=== PATIENT | male | born 1960 | race Caucasian/White ===

== ENCOUNTER 2022-11-20 08:50 | Emergency (ER) | payer MEDICARE ==
[2022-11-20 09:11] VITALS: BP 142/50; PULSE 68; RESP 17; TEMP 99; BMI 18.7
[2022-11-20] MEDS ORDERED: ACETAMINOPHEN 1000 MG/100 ML BAG IVPB ONE (10:21)
[2022-11-20 11:15] LABS: HEMATOCRIT 33.4 % (35.4-49); MCH 28.8 pg (25.7-33.7); MCHC 32.8 g/dl (32.0-35.9); MEAN CELL VOLUME 87.8 fl (80-96); MEAN PLT VOLUME 8.9 fl (7.5-11.1); PLATELET COUNT 101 10^3/uL (134-434); RBC 3.81 M/mm3 (4.00-5.60); RDW 13.5 % (11.9-15.9); WHITE BLOOD COUNT 3.3 K/mm3 (4.0-10.0)
[2022-11-20 11:19] LABS: EPI CELLS 4 /uL (0-25.1); HYALINE CASTS 1 /uL (0-3.1); URINE APPEARANCE CLEAR; URINE BACTERIA 1 /uL (0-1359); URINE BILIRUBIN NEGATIVE (NEGATIVE); URINE COLOR YELLOW; URINE GLUCOSE (UA) NEGATIVE (NEGATIVE); URINE KETONE 1+ (NEGATIVE); URINE LEUK ESTERASE NEGATIVE (NEGATIVE); URINE NITRITE NEGATIVE (NEGATIVE); URINE PROTEIN 1+ (NEGATIVE); URINE RBC 61 /uL (0-23.9); URINE UROBILINOGEN 0.2 mg/dL (0.2-1.0); URINE WBC 9 /uL (0-25.8)
[2022-11-20 11:36] LABS: ALBUMIN 3.9 g/dl (3.4-5.0); CALCIUM 8.5 mg/dL (8.5-10.1); MAGNESIUM 1.8 mg/dL (1.8-2.4)
[2022-11-20] MEDS ORDERED: ACETAMINOPHEN INJECTION 100 ML IVPB ONE (11:37)
[2022-11-20 11:39] LABS: PHOSPHOROUS 3.5 mg/dL (2.5-4.9)
[2022-11-20 11:41] LABS: BILIRUBIN,TOTAL 0.6 mg/dL (0.2-1); TOT PROT 6.8 g/dl (6.4-8.2)
[2022-11-20 11:44] LABS: BLOOD UREA NITROGEN 16.8 mg/dL (7-18)
[2022-11-20 11:49] LABS: ANISOCYTOSIS 0; HELMET CELLS 0; HOWELL-JOLLY BODIES 0; MACROCYTOSIS 0; OVALOCYTE 0; ROULEAU 0; SICKELED CELLS 0; TARGET CELLS 0; TEAR DROP CELLS 0; TOXIC GRANULATION 0
== END 2022-11-20 15:40 | disposition home or self-care (01) ==
LOC: JER 08:50
PROC: 3E033GC Introduction of Other Therapeutic Substance into Peripheral Vein, Percutaneous Approach (ICD-10-PCS; principal; 2022-11-20)
DX: U07.1 COVID-19 (principal); N28.1 Cyst of kidney, acquired; D69.6 Thrombocytopenia, unspecified; D72.819 Decreased white blood cell count, unspecified
CPT/HCPCS: 0241U-QW; 36415; 74177-TC; 80053; 81003; 83735; 84100; 85025; 87086; 93005; 93010; 96374; 99285-25

== ENCOUNTER 2022-12-03 14:45 | Emergency (ER) | payer MEDICARE ==
[2022-12-03 14:57] VITALS: BP 147/83; PULSE 97; RESP 18; TEMP 98.4; BMI 16.2
== END 2022-12-03 15:54 | disposition home or self-care (01) ==
LOC: JERFT 14:45 → JER 14:45 → JERFT 15:54
DX: H92.02 Otalgia, left ear (principal)
CPT/HCPCS: 99283-25

== ENCOUNTER 2023-03-14 21:17 | Emergency (ER) | payer MEDICARE, OTHER ==
[2023-03-14 21:35] VITALS: BP 175/78; PULSE 66; RESP 20; TEMP 98.2; BMI 16.2
== END 2023-03-15 01:25 | disposition left against medical advice (07) ==
LOC: JERFT 21:17 → JER 21:17
DX: G47.00 Insomnia, unspecified (principal); Z76.0 Encounter for issue of repeat prescription
CPT/HCPCS: 99281-25

== ENCOUNTER 2023-03-15 08:40 | Emergency (ER) | payer MEDICARE, OTHER ==
[2023-03-15 08:57] VITALS: RESP 16; BMI 16.9
[2023-03-15 10:36] VITALS: BP 167/76; PULSE 60; TEMP 97.5
== END 2023-03-15 10:49 | disposition home or self-care (01) ==
LOC: JER 08:40
DX: J09.X2 Influenza due to identified novel influenza A virus with other respiratory manifestations (principal); R51.9 Headache, unspecified; Z20.822 Contact with and (suspected) exposure to COVID-19
CPT/HCPCS: 0241U-QW; 99283-25

== ENCOUNTER 2023-05-14 08:10 | Emergency (ER) | payer MEDICARE, OTHER ==
[2023-05-14 08:21] VITALS: TEMP 98; BMI 16.9
[2023-05-14] MEDS ORDERED: LIDOCAINE 5% TOPICAL PATCH TP ONE (08:37)
[2023-05-14] MEDS ORDERED: LIDOCAINE 5% TOPICAL PATCH ONE (08:40)
[2023-05-14 09:26] VITALS: BP 104/56; PULSE 59; RESP 14
[2023-05-14] MEDS ORDERED: LIDOCAINE PATCH REMOVAL MC ONE (22:00)
== END 2023-05-14 09:57 | disposition home or self-care (01) ==
LOC: JER 08:10
DX: M79.672 Pain in left foot (principal); R22.42 Localized swelling, mass and lump, left lower limb
CPT/HCPCS: 73630-TC-LT; 99283-25

== ENCOUNTER 2023-05-17 18:23 | Emergency (ER) | payer MEDICARE, OTHER ==
[2023-05-17 18:32] VITALS: PULSE 63; RESP 20; TEMP 98.2; BMI 18.7
[2023-05-17] MEDS ORDERED: OXYMETAZOLINE 0.05% NASAL SOLUTION 15 ML BOTTLE NS ONE (19:13)
[2023-05-17 19:25] VITALS: BP 156/65
[2023-05-17] MEDS ORDERED: hydrOXYzine PAMOATE 50 MG CAPSULE (FP) PO ONE (19:25)
[2023-05-17] MEDS ORDERED: predniSONE 20 MG TABLET (UD) PO ONE (19:26)
[2023-05-17] MEDS ORDERED: predniSONE 20 MG TABLET (UD) ONE (19:39)
[2023-05-17] MEDS ORDERED: hydrOXYzine PAMOATE 50 MG CAPSULE (FP) ONE (19:39)
== END 2023-05-17 20:23 | disposition home or self-care (01) ==
LOC: JERFT 18:23 → JER 18:23 → JERFT 20:23
DX: J31.0 Chronic rhinitis (principal); R09.81 Nasal congestion
CPT/HCPCS: 99283-25

== ENCOUNTER 2024-01-04 16:33 | Emergency (ER) | payer MEDICARE, OTHER ==
[2024-01-04 16:50] VITALS: BP 164/54; PULSE 61; RESP 18; TEMP 97.4; BMI 18.7
== END 2024-01-04 17:46 | disposition home or self-care (01) ==
LOC: JERFT 16:33
DX: H92.02 Otalgia, left ear (principal)
CPT/HCPCS: 99283-25

== ENCOUNTER 2024-05-12 16:48 | Emergency (ER) | payer MEDICARE, OTHER ==
[2024-05-12 16:56] VITALS: BP 165/57; PULSE 63; RESP 18; TEMP 97.8; BMI 16.6
== END 2024-05-12 17:17 | disposition home or self-care (01) ==
LOC: JERFT 16:48
DX: R09.81 Nasal congestion (principal); H92.02 Otalgia, left ear
CPT/HCPCS: 99283-25

== ENCOUNTER 2024-05-25 17:45 | Emergency (ER) | payer MEDICARE, OTHER ==
[2024-05-25 17:50] VITALS: BP 158/78; PULSE 67; RESP 18; TEMP 97; BMI 16.2
[2024-05-25] MEDS ORDERED: GLUCAGON 1 MG KIT ONE (21:43)
[2024-05-25] MEDS: GLUCAGON 1 MG KIT IVPUSH ONE (22:09)
[2024-05-25 22:21] LABS: BASO % 1.5 % (0-2.0); EOS % 4.9 % (0-4.5); HEMOGLOBIN 12.5 GM/dL (11.7-16.9); LYMPH % 19.1 % (8-40); MCH 29.5 pg (25.7-33.7); MCHC 33.7 g/dl (32.0-35.9); MEAN CELL VOLUME 87.4 fl (80-96); MEAN PLT VOLUME 8.6 fl (7.5-11.1); MONO % 9.7 % (3.8-10.2); NEUT % 64.8 % (42.8-82.8); PLATELET COUNT 186 10^3/uL (134-434); RBC 4.23 M/mm3 (4.00-5.60); RDW 13.5 % (11.9-15.9); WHITE BLOOD COUNT 5.6 K/mm3 (4.0-10.0)
[2024-05-25] MEDS ORDERED: IBUPROFEN 400 MG TABLET (FP) PO ONE (22:46)
[2024-05-25 22:48] LABS: POTASSIUM 4.4 mmol/L (3.5-5.1)
[2024-05-25 22:50] LABS: CALCIUM 9.2 mg/dL (8.5-10.1)
[2024-05-25 22:51] LABS: ALBUMIN 4.4 g/dl (3.4-5.0); BLOOD UREA NITROGEN 8.6 mg/dL (7-18)
[2024-05-25 22:54] LABS: CREATININE 0.9 mg/dL (0.55-1.3)
[2024-05-25 22:56] LABS: BILIRUBIN,TOTAL 0.6 mg/dL (0.2-1); TOT PROT 7.8 g/dl (6.4-8.2)
[2024-05-25] MEDS: IBUPROFEN 400 MG TABLET (FP) PO ONE (23:16)
== END 2024-05-26 00:09 | disposition home or self-care (01) ==
LOC: JER 17:45
PROC: 3E033GC Introduction of Other Therapeutic Substance into Peripheral Vein, Percutaneous Approach (ICD-10-PCS; principal; 2024-05-25)
DX: T18.108A Unspecified foreign body in esophagus causing other injury, initial encounter (principal); R13.10 Dysphagia, unspecified
CPT/HCPCS: 36415; 80053; 85025; 96374; 99284-25

== ENCOUNTER 2024-08-18 08:47 | Emergency (ER) | payer MEDICARE, OTHER ==
[2024-08-18 09:04] VITALS: BP 177/76; PULSE 74; RESP 18; TEMP 98.8; BMI 16.9
[2024-08-18] MEDS ORDERED: ACETAMINOPHEN 500 MG TABLET (FP) ONE (09:40)
[2024-08-18] MEDS: ACETAMINOPHEN 500 MG TABLET (FP) PO ONE (09:43)
[2024-08-18] MEDS ORDERED: IBUPROFEN 600 MG TABLET (FP) PO ONE (13:14)
[2024-08-18] MEDS: IBUPROFEN 600 MG TABLET (FP) PO ONE (13:15)
== END 2024-08-18 13:50 | disposition home or self-care (01) ==
LOC: JERFT 08:47
DX: S63.92XA Sprain of unspecified part of left wrist and hand, initial encounter (principal); S20.212A Contusion of left front wall of thorax, initial encounter; W18.30XA Fall on same level, unspecified, initial encounter
CPT/HCPCS: 71046-TC-FY; 71101-TC-LT-FY; 73110-TC-LT-FY; 73130-TC-LT-FY; 99284-25

== ENCOUNTER 2025-01-18 21:27 | Emergency (ER) | payer MEDICARE, OTHER ==
[2025-01-18 21:53] VITALS: BMI 23.5
[2025-01-18 23:40] LABS: HEMATOCRIT 34.6 % (35.4-49); HEMOGLOBIN 11.9 GM/dL (11.7-16.9); MCH 29.7 pg (25.7-33.7); MCHC 34.3 g/dl (32.0-35.9); MEAN CELL VOLUME 86.7 fl (80-96); MEAN PLT VOLUME 8.8 fl (7.5-11.1); PLATELET COUNT 154 10^3/uL (134-434); RBC 3.99 M/mm3 (4.00-5.60); RDW 13.6 % (11.9-15.9); WHITE BLOOD COUNT 6.8 K/mm3 (4.0-10.0)
[2025-01-18] MEDS ORDERED: LIDOCAINE HCL 2% JELLY 6 ML TP ONE (23:40)
[2025-01-18] MEDS: LIDOCAINE VISCOUS 2% ORAL/TOP 100 ML BOTTLE MM ONE (23:47)
[2025-01-19 00:27] LABS: CHLORIDE 93 mmol/L (98-107)
[2025-01-19 00:29] LABS: ALBUMIN 3.9 g/dl (3.4-5.0); BLOOD UREA NITROGEN 11.9 mg/dL (7-18); CALCIUM 8.9 mg/dL (8.5-10.1); CO2 27 mmol/L (21-32); GLUCOSE,RANDOM 112 mg/dL (74-106)
[2025-01-19 00:34] LABS: TOT PROT 8.5 g/dl (6.4-8.2)
[2025-01-19 00:35] LABS: ALK PHOS 87 U/L (45-117)
[2025-01-19] MEDS ORDERED: POLYETHYLENE GLYCOL (HEALTHYLAX) 3350 17 GM PACKET ONE (00:40)
[2025-01-19 01:01] VITALS: BP 145/59; PULSE 68; RESP 19; TEMP 97.4
[2025-01-19] MEDS: POLYETHYLENE GLYCOL (HEALTHYLAX) 3350 17 GM PACKET PO ONE (01:07)
[2025-01-19 02:06] LABS: ANION GAP -5 mmol/L (4-13); POTASSIUM > 10.0 mmol/L (3.5-5.1); SGOT/AST 142 U/L (15-37); SODIUM 115 mmol/L (136-145)
== END 2025-01-19 02:03 | disposition home or self-care (01) ==
LOC: JER 21:27
DX: K64.4 Residual hemorrhoidal skin tags (principal); K62.5 Hemorrhage of anus and rectum
CPT/HCPCS: 36415; 80053; 85027; 99283-25

== ENCOUNTER 2025-02-01 15:37 | Emergency (ER) | payer MEDICARE, OTHER ==
[2025-02-01 15:49] VITALS: BP 166/59; PULSE 88; RESP 18; TEMP 99.9; BMI 13.7
[2025-02-01] MEDS ORDERED: ACETAMINOPHEN 325 MG TABLET (FP) ONE (16:27)
[2025-02-01] MEDS: ACETAMINOPHEN 325 MG TABLET (FP) PO ONE (16:28)
== END 2025-02-01 17:10 | disposition home or self-care (01) ==
LOC: JERFT 15:37
DX: U07.1 COVID-19 (principal); J06.9 Acute upper respiratory infection, unspecified; H92.02 Otalgia, left ear; R09.81 Nasal congestion; R68.83 Chills (without fever)
CPT/HCPCS: 0241U-QW; 99283-25

== ENCOUNTER 2025-02-04 15:49 | Emergency (ER) | payer MEDICARE, OTHER ==
[2025-02-04 16:05] VITALS: BP 146/59; PULSE 59; RESP 17; TEMP 99; BMI 13.7
[2025-02-04] MEDS ORDERED: ACETAMINOPHEN INJECTION 100 ML ONE (16:31)
[2025-02-04] MEDS: SODIUM CHLORIDE 0.9% 500 ML INFUS.BAG IV ONE (17:06)
[2025-02-04] MEDS: ACETAMINOPHEN 1000 MG/100 ML BAG IVPB ONE (17:06)
[2025-02-04 17:15] LABS: HEMATOCRIT 34.8 % (40.1-51.0); HEMOGLOBIN 11.5 g/dL (13.7-17.5); MEAN CELL VOLUME 88.8 fl (79.0-92.2); PLATELET COUNT 143 x10^3/uL (163-337); RDW 13.1 % (12.2-16.4)
[2025-02-04 17:38] LABS: POTASSIUM 4.2 mmol/L (3.5-5.1)
[2025-02-04 17:40] LABS: ALBUMIN 4.2 g/dl (3.4-5.0); BLOOD UREA NITROGEN 12.4 mg/dL (7-18)
[2025-02-04 17:44] LABS: BILIRUBIN,TOTAL 0.4 mg/dL (0.2-1); TOT PROT 7.3 g/dl (6.4-8.2)
[2025-02-04 18:29] LABS: HCV DIAGNOSTIC IN-HOUSE W/RFLX NON-REACTIVE (NONREACTIVE); HIV INTERPRETATION NEGATIVE (NEGATIVE)
== END 2025-02-04 18:33 | disposition home or self-care (01) ==
LOC: JER 15:49
PROC: 3E033NZ Introduction of Analgesics, Hypnotics, Sedatives into Peripheral Vein, Percutaneous Approach (ICD-10-PCS; principal; 2025-02-04)
DX: U07.1 COVID-19 (principal); R53.83 Other fatigue; M79.10 Myalgia, unspecified site; R50.9 Fever, unspecified
CPT/HCPCS: 36415; 71046-TC-FY; 80053; 85025; 86803; 87389; 96374; 99284-25; J0131

== ENCOUNTER 2025-02-13 13:40 | Emergency (ER) | payer MEDICARE, OTHER ==
[2025-02-13 13:58] VITALS: BP 178/56; PULSE 70; RESP 16; TEMP 98.6; BMI 13.7
== END 2025-02-13 15:40 | disposition home or self-care (01) ==
LOC: JERFT 13:40
DX: H66.92 Otitis media, unspecified, left ear (principal); H92.02 Otalgia, left ear; J02.9 Acute pharyngitis, unspecified
CPT/HCPCS: 99283-25

== ENCOUNTER 2025-03-28 17:36 | Emergency (ER) | payer MEDICARE, OTHER ==
[2025-03-28 17:58] VITALS: BP 173/77; PULSE 70; RESP 16; TEMP 98.3; BMI 16.1
[2025-03-28] MEDS ORDERED: IBUPROFEN 600 MG TABLET (FP) PO ONE (20:29)
[2025-03-28] MEDS: IBUPROFEN 600 MG TABLET (FP) PO ONE (20:33)
[2025-03-28] MEDS ORDERED: IBUPROFEN 100 MG/5 ML UNIT DOSE CUPS ONE (20:36)
[2025-03-28] MEDS: IBUPROFEN 100 MG/5 ML UNIT DOSE CUPS PO ONE (20:38)
[2025-03-28] MEDS: OFLOXACIN 0.3% OTIC SOLUTION 5 ML BOTTLE AS ONE (21:04)
== END 2025-03-28 21:05 | disposition home or self-care (01) ==
LOC: JER 17:36
DX: H92.02 Otalgia, left ear (principal)
CPT/HCPCS: 0241U-QW; 99283-25